=== PATIENT | female | born 1960 | race Caucasian/White ===

== ENCOUNTER 2022-06-29 14:35 | Outpatient (CLI) | payer OTHER | END 2022-06-29 14:36 | disposition home or self-care (01) | LOC: NAV RAD 14:35 | PROVIDERS: ATTEND Nurse Practitioner Family | DX: R53.83 Other fatigue (principal); I51.7 Cardiomegaly; S22.31XD Fracture of one rib, right side, subsequent encounter for fracture with routine healing | CPT/HCPCS: 71046 ==

== ENCOUNTER 2023-01-04 08:51 | Outpatient (CLI) | payer OTHER | END 2023-01-04 08:52 | disposition home or self-care (01) | LOC: NAV CT 08:51 | PROVIDERS: ATTEND Internal Medicine Hematology & Oncology | DX: Z01.812 Encounter for preprocedural laboratory examination (principal); C50.211 Malignant neoplasm of upper-inner quadrant of right female breast; C79.51 Secondary malignant neoplasm of bone; C78.7 Secondary malignant neoplasm of liver and intrahepatic bile duct; R16.0 Hepatomegaly, not elsewhere classified; K76.9 Liver disease, unspecified | CPT/HCPCS: 36415; 74177; 82565 ==